=== PATIENT | male | born 1990 | race Caucasian/White ===

== ENCOUNTER 2018-12-21 10:44 | Emergency (ER) | payer OTHER ==
[~2018-12-21] VITALS: Ht 195.6 cm; Wt 83.0 kg
[~2018-12-21 10:44] MED LIST: ALBUTEROL SULF8.5 GM INH; AZITHROMYCIN250 MG PO; BACITRACIN15 GM TOP; DOXYCYCLINE HY100 MG PO; IBUPROFEN800 MG PO; KEFLEX500 MG PO; LIDOCAINE-HYDROC7 GM PR; PERCOCET 10-321 EACH PO; PERCOCET 5-3251 EACH PO; PROCTOCORT30 MG PR; TESSALON PERLE100 MG PO
== END 2018-12-21 13:05 | disposition home or self-care (01) ==
LOC: ED 10:44
DX: M25.512 Pain in left shoulder (principal); F17.200 Nicotine dependence, unspecified, uncomplicated
CPT/HCPCS: 73030; 99283-25

== ENCOUNTER 2019-05-28 11:17 | Emergency (ER) | payer BC ==
[~2019-05-28] VITALS: Ht 195.6 cm; Wt 83.0 kg
[2019-05-28] MEDS ORDERED: PROVENTIL HFA6.7 GM INH (12:42)
== END 2019-05-28 13:00 | disposition home or self-care (01) ==
LOC: ED 11:17
DX: J98.01 Acute bronchospasm (principal); F17.200 Nicotine dependence, unspecified, uncomplicated
CPT/HCPCS: 71046; 94640; 99283-25; 99406

== ENCOUNTER 2019-08-29 09:14 | Emergency (ER) | payer OTHER, BC ==
[~2019-08-29] VITALS: Ht 195.6 cm; Wt 83.0 kg
[~2019-08-29 09:14] MED LIST changes: +PROVENTIL HFA6.7 GM INH
[2019-08-29] MEDS ORDERED: ULTRAM50 MG PO (10:02)
== END 2019-08-29 10:20 | disposition home or self-care (01) ==
LOC: ED 09:14
DX: S43.401A Unspecified sprain of right shoulder joint, initial encounter (principal); F17.200 Nicotine dependence, unspecified, uncomplicated; Z79.899 Other long term (current) drug therapy; X58.XXXA Exposure to other specified factors, initial encounter
CPT/HCPCS: 73030; 96372; 99283-25; J1885

== ENCOUNTER 2019-12-20 05:35 | Day surgery (SDC) | payer OTHER, BC ==
[~2019-12-20] VITALS: Ht 193 cm; Wt 88.5 kg
[~2019-12-20 05:35] MED LIST changes: +ULTRAM50 MG PO
[2019-12-20] MEDS ORDERED: HYDROCODON-ACE1 EA11 PO (07:59)
--- NOTE | 2019-12-20 08:06 | NUR ---
12/20/19 0806 Kristen Marie 0800 PATIENT ARRIVES TO PACU SLEEPING, UNRESPONSIVE TO PAIN. RESP EVEN AND LABORED, SNORING AT TIMES, OCCASIONALLY NEEDING JAW THRUST TO MAINTAIN PATENT AIRWAY. MASK AT 6 LITERS.
--- NOTE | 2019-12-20 08:48 | NUR ---
PT ARRIVES BACK TO DS TREATMENT ROOM FROM PACU DROWSY. PT ABLE TO DENY ANY PAIN IN RIGHT SHOULDER AND STATES TINGLING AND NUMBNESS PRESENT. PT UNABLE TO FEEL RN CHECK PULSE ON RIGHT WRIST. PT ABLE TO SLIGHTLY MOVE FINGERS ON RIGHT SIDE. PT DENIES NAUSEA, BUT STATES THROAT HURTS. PT HAS WATER IN HAND AND IS PROVIDED CRACKERS. PT STATES BEING "REALLY HUNGRY." DC CRITERIA EXPLAINED. THIS RN WILL NOTIFY PT SPOUSE VIA TELEPHONE PER REQUEST. CALL LIGHT WITHIN REACH.
--- NOTE | 2019-12-20 09:40 | NUR ---
PT WOULD LIKE TO GET UP AND USE RESTROOM. THIS RN ASSISTS PT OUT OF BED, PT HAS STEADY GAIT AND DENIES DIZZINESS WITH MOVEMENT. PT ABLE TO VOID QS WITH NO PROBLEMS. BACK TO BED, LUNCH DELIVERED. ICED WATER REFILLED. PT PROVIDED WARM BLANKETS, CRYO CUFF BACK ON RIGHT ARM. CALL LIGHT WITHIN REACH.
--- NOTE | 2019-12-20 11:27 | NUR ---
[id number]: PT TOLERATES LUNCH WELL WITH NO C/O NAUSEA. DC CRITERIA MET AT THIS TIME, SPOUSE ON HER WAY FOR SAFE RIDE HOME. [id number]: DC INSTRUCTIONS GIVEN IN PRESENCE OF PT AND SPOUSE. PT AWARE OF PAIN MEDICATION ESCRIPTED TO PHARMACY BY DR. GARCIA. PT DRESSES SELF WITH HELP OF SPOUSE AND DC VIA WC FROM TREATMENT ROOM TO HOME.
--- NOTE | 2019-12-23 07:37 | OR ---
[facility] [address], [place] [address] Signed DATE OF OPERATION: 12/20/2019 SURGEON: Jenae Agarwal MD PREOPERATIVE DIAGNOSIS: Superior labrum anterior and posterior tear, right shoulder. POSTOPERATIVE DIAGNOSIS: Bursitis, right shoulder. PROCEDURE PERFORMED: Right shoulder arthroscopy with limited debridement. TRAFFIC CONTROL TECHNICIAN: ANESTHESIA: General. BLOOD LOSS: Minimal. IMPLANTS: None. BRIEF HISTORY: Byron is a 29-year-old gentleman who injured his shoulder at work. MRI is consistent with the possibility of a SLAP tear. Risks and benefits of operative treatment were discussed with him and he elected to proceed. DESCRIPTION OF PROCEDURE: Once consent was obtained, he was taken to the operating room. After adequate anesthesia, he was placed in a beach chair position. All downside pressure points were well padded. The right shoulder was prepped and draped in a standard sterile fashion. The shoulder was then injected with 15 mL of 0.25% Marcaine with epinephrine as was subacromial space. Standard posterior portal was made and the scope was introduced in the shoulder. ARTHROSCOPIC FINDINGS: Mild to moderate synovitis was noted anterior and anterosuperiorly. The glenohumeral Electronically Signed By: JENAE AGARWAL MD 12/23/19 0737 PATIENT NAME: BYRON CARTER OPERATIVE REPORT DATE OF : 88 REPORT #: [id number] PHYSICIAN: JENAE AGARWAL MD PCP: PEDRITO FLYNN PA-C REPORT IS CONFIDENTIAL AND NOT TO BE RELEASED WITHOUT AUTHORIZATION [facility] [address] [facility] [place] [address] Signed surfaces were intact. Biceps, anchor and labrum were all intact with no evidence of a tear instability. The undersurface of the rotator cuff was intact. The subacromial space showed moderate to significant thickening and bursitis throughout. The superior surface of the rotator cuff was intact. Diagnostic arthroscopy was undertaken as noted above. The standard anterior portal was made and the labrum was carefully palpated and biceps anchor was clamped and pulled on with no instability. The scope was then withdrawn, placed in the subacromial space. Standard lateral portal was made. The bursa was noted to be thickened and indurated throughout. The combination of Mitek VAPR and the shaver were then used to remove the bursa in total. The superior surface of rotator cuff was intact, the acromion was type 1. All bleeders were cauterized as we went. Once this was accomplished, the shoulder was taken through range of motion and the rotator cuff was found to be intact. The scope was withdrawn. Portals were closed with 3-0 nylon and the wound was dressed with ProWick dressing. He tolerated the procedure well. All sponge, needle, and instrument counts were correct. Jenae Agarwal MD BA/PILIL /[id number] Copies: ~ Electronically Signed By: JENAE AGARWAL MD 12/23/19 0737 PATIENT NAME: BYRON CARTER OPERATIVE REPORT DATE OF : 88 REPORT #: [id number] PHYSICIAN: JENAE AGARWAL MD PCP: PEDRITO FLYNN PA-C REPORT IS CONFIDENTIAL AND NOT TO BE RELEASED WITHOUT AUTHORIZATION
== END 2019-12-20 10:45 | disposition home or self-care (01) ==
LOC: DS 05:35
PROVIDERS: ATTEND Specialist
PROC: 0RBJ4ZZ Excision of Right Shoulder Joint, Percutaneous Endoscopic Approach (ICD-10-PCS; principal; 2019-12-20 06:45)
DX: M75.51 Bursitis of right shoulder (principal); M65.811 Other synovitis and tenosynovitis, right shoulder; F17.200 Nicotine dependence, unspecified, uncomplicated
CPT/HCPCS: 00450; 64415; 76942; J0330; J0690; J1100; J1885; J2001; J2250; J2704; J2795; J7121

== ENCOUNTER 2021-06-10 10:01 | Emergency (ER) | payer OTHER ==
[~2021-06-10] VITALS: Ht 193 cm; Wt 88.5 kg
[~2021-06-10 10:01] MED LIST changes: +HYDROCODON-ACE1 EA11 PO
== END 2021-06-10 14:10 | disposition home or self-care (01) ==
LOC: ED 10:01
DX: S67.22XA Crushing injury of left hand, initial encounter (principal); F17.200 Nicotine dependence, unspecified, uncomplicated; W23.0XXA Caught, crushed, jammed, or pinched between moving objects, initial encounter; Y99.0 Civilian activity done for income or pay
CPT/HCPCS: 73130; 99283-25; A9270

== ENCOUNTER 2021-08-25 10:28 | Emergency (ER) | payer OTHER ==
[~2021-08-25] VITALS: Ht 193 cm; Wt 88.5 kg
== END 2021-08-25 12:33 | disposition home or self-care (01) ==
LOC: ED 10:28
DX: S61.411A Laceration without foreign body of right hand, initial encounter (principal); F17.200 Nicotine dependence, unspecified, uncomplicated; X58.XXXA Exposure to other specified factors, initial encounter; Y99.0 Civilian activity done for income or pay
CPT/HCPCS: 12001; 99282-25

== ENCOUNTER 2024-05-29 10:42 | Emergency (ER) | payer OTHER ==
[~2024-05-29] VITALS: Ht 193 cm; Wt 85.5 kg
[2024-05-29 11:41] VITALS: BP 119/76
== END 2024-05-29 11:41 | disposition home or self-care (01) ==
LOC: ED 10:42
DX: S60.512A Abrasion of left hand, initial encounter (principal); W18.31XA Fall on same level due to stepping on an object, initial encounter; F17.200 Nicotine dependence, unspecified, uncomplicated
CPT/HCPCS: 73110; 99283